=== PATIENT | female | born 1945 | race Caucasian/White ===

== ENCOUNTER 2019-08-03 07:22 | Day surgery (SDC) | payer MEDICARE ==
[2019-08-01 11:03] LABS: CREATININE 0.7 mg/dL (0.5-1.5); POTASSIUM 3.9 mmol/L (3.5-5.1)
[2019-08-01 11:07] LABS: INR 1.02 (0.85-1.15); PARTIAL THROMBOPLASTIN TIME 25.1 SEC (26.3-35.5); PROTHROMBIN TIME 10.7 SEC (9.6-11.6)
[2019-08-01 11:28] LABS: BASOPHILS % (AUTO) 0.6 % (0.0-5.0); EOSINOPHILS % (AUTO) 2.1 % (0.0-8.0); HEMATOCRIT 42.1 % (36-48); LYMPHOCYTES % (AUTO) 22.9 % (21.0-51.0); MEAN CORPUSCULAR HEMOGLOBIN 33.3 pg (27.0-33.0); MEAN CORPUSCULAR HGB CONC 33.3 g/dL (32.0-36.0); MONOCYTES % (AUTO) 9.3 % (3.0-13.0); PLATELET COUNT (AUTO) 206 K/uL (130-400); RED BLOOD CELL COUNT(AUTO) 4.21 MIL/uL (4.00-5.50); RED CELL DISTRIBUTION WIDTH 12.2 % (11.0-15.5); WHITE BLOOD COUNT (AUTO) 6.7 K/uL (4.8-10.8)
[2019-08-01 12:12] VITALS: BP 137/63
[~2019-08-03] VITALS: Ht 160 cm; Wt 61.7 kg
[2019-08-03] VITALS (8 sets, daily range): BP systolic 92–149; BP diastolic 52–89
[~2019-08-03 07:22] MED LIST: ASPI-1181 PO; ATOR20TA65 PO; BILBERRY PO; CARV25TA PO; CHIA SEED PO; ESOM40CA PO; LOSA1TAB54 PO; METF-526 PO; MILK THISTLE PO; SODIUM CHLORIDE 0.9% 1000ML 1,000 ML IV SCH; THIO200T2 PO; UBID100C10 PO; [UNRECOGNIZED DRUG - OTHER]
[2019-08-03] MEDS ORDERED: HEPARIN SODIUM 1000UNIT/ML 10ML VIAL ONE (11:17)
[2019-08-03] MEDS ORDERED: ISOPROTERENOL HCL 0.2 MG/ML AMP/VIAL/BAG ONE ×2 (11:17→13:20)
[2019-08-03] MEDS ORDERED: MEPERIDINE-PF 25 MG/ML SYG ONE (11:18)
[2019-08-03] MEDS ORDERED: LIDOCAINE HCL 2% 20ML ONE ×2 (11:18→12:12)
[2019-08-03] MEDS ORDERED: MIDAZOLAM HCL 1 MG/ML 2ML VIAL ONE ×3 (11:18→12:26)
[2019-08-03] MEDS ORDERED: FENTANYL CITRATE PF 50 MCG/1 ML 2ML VIAL ONE ×2 (11:40→12:26)
--- NOTE | 2019-08-03 15:30 | NUR ---
REPORT REPORT GIVEN TO CRISELDA VILLAVICENCIO RN. PT SUPINE ON BED, AWAKE AND ALERT. CATH SITE BOTH GROIN REMAINS SOFT, DRESSINGS DRY AND INTACT, NO OOZING NO HEMATOMA NOTED. ASSISTING IN FEEDING PT. TOLERATING DIET WELL.
== END 2019-08-03 18:18 | disposition home or self-care (01) ==
LOC: DAH 07:22
PROVIDERS: ATTEND Internal Medicine Cardiovascular Disease
DX: I47.1 Supraventricular tachycardia (principal); I10 Essential (primary) hypertension; E78.5 Hyperlipidemia, unspecified; E11.9 Type 2 diabetes mellitus without complications; F17.210 Nicotine dependence, cigarettes, uncomplicated; Z79.82 Long term (current) use of aspirin; Z79.899 Other long term (current) drug therapy; Z79.84 Long term (current) use of oral hypoglycemic drugs; Z79.01 Long term (current) use of anticoagulants; Z88.1 Allergy status to other antibiotic agents; Z88.8 Allergy status to other drugs, medicaments and biological substances; Z72.89 Other problems related to lifestyle; Z82.49 Family history of ischemic heart disease and other diseases of the circulatory system; Z83.3 Family history of diabetes mellitus
CPT/HCPCS: 36415; 80048; 82948 ×2; 85025; 85610; 85730; 93613; 93620; 93621; 93623; A4215; A4216; A4221; A4222; A4223 ×3; A4606; A4649 ×2; A4663; C1730 ×4; C1894 ×5; J1644; J2250 ×3; J3010 ×2; J3490 ×4; 99156; 99157; J2175

== ENCOUNTER → 2022-11-01 | Outpatient (CLI) | payer MEDICARE ==
[~2022-11-01] MED LIST changes: -ASPI-1181 PO; +ASPI-1443 PO; -SODIUM CHLORIDE 0.9% 1000ML 1,000 ML IV SCH
== END | disposition home or self-care (01) ==
LOC: RAH 08:55
PROVIDERS: ATTEND Family Medicine
DX: M51.26 Other intervertebral disc displacement, lumbar region (principal); R51.9 Headache, unspecified; C20 Malignant neoplasm of rectum
CPT/HCPCS: 70470; 72148

== ENCOUNTER → 2023-05-02 | Outpatient (CLI) | payer MEDICARE | END | disposition home or self-care (01) | LOC: SHCH 10:42 | PROVIDERS: ATTEND Internal Medicine Cardiovascular Disease | DX: I11.9 Hypertensive heart disease without heart failure (principal); I47.10 Supraventricular tachycardia, unspecified; E78.5 Hyperlipidemia, unspecified; E11.9 Type 2 diabetes mellitus without complications | CPT/HCPCS: 93306 ==

== ENCOUNTER → 2023-05-24 | Outpatient (CLI) | payer MEDICARE | END | disposition home or self-care (01) | LOC: RAH 14:14 | PROVIDERS: ATTEND Family Medicine | DX: R06.2 Wheezing (principal); I70.0 Atherosclerosis of aorta; M47.815 Spondylosis without myelopathy or radiculopathy, thoracolumbar region | CPT/HCPCS: 71046 ==

== ENCOUNTER → 2023-06-29 | Outpatient (CLI) | payer MEDICARE | END | disposition home or self-care (01) | LOC: RAH 11:40 | PROVIDERS: ATTEND Family Medicine | DX: M47.812 Spondylosis without myelopathy or radiculopathy, cervical region (principal) | CPT/HCPCS: 72050 ==

== ENCOUNTER → 2023-08-08 | Outpatient (CLI) | payer MEDICARE | END | disposition home or self-care (01) | LOC: SHCH 09:21 | PROVIDERS: ATTEND Student in an Organized Health Care Education/Training Program | DX: I70.293 Other atherosclerosis of native arteries of extremities, bilateral legs (principal); R07.9 Chest pain, unspecified; I10 Essential (primary) hypertension; I47.10 Supraventricular tachycardia, unspecified; R93.1 Abnormal findings on diagnostic imaging of heart and coronary circulation; E11.51 Type 2 diabetes mellitus with diabetic peripheral angiopathy without gangrene; Z79.4 Long term (current) use of insulin; Z79.899 Other long term (current) drug therapy | CPT/HCPCS: 93925 ==

== ENCOUNTER → 2023-08-12 | Outpatient (CLI) | payer MEDICARE ==
[~2023-08-12] MED LIST changes: +IOHEXOL 350 MG/ML 100ML INFUS..BTL IV ONE; +METOPROLOL TARTRATE 1 MG/ML 5ML VIAL IV ONE
== END | disposition home or self-care (01) ==
LOC: RAH 07:47
PROVIDERS: ATTEND Student in an Organized Health Care Education/Training Program
DX: R07.9 Chest pain, unspecified (principal)
CPT/HCPCS: 75574; J3490; Q9967

== ENCOUNTER → 2023-08-17 | Outpatient (CLI) | payer MEDICARE ==
[~2023-08-17] MED LIST changes: -IOHEXOL 350 MG/ML 100ML INFUS..BTL IV ONE; -METOPROLOL TARTRATE 1 MG/ML 5ML VIAL IV ONE
== END | disposition home or self-care (01) ==
LOC: RAH 14:43
PROVIDERS: ATTEND Physical Medicine & Rehabilitation
DX: M47.22 Other spondylosis with radiculopathy, cervical region (principal); M48.02 Spinal stenosis, cervical region
CPT/HCPCS: 72141

== ENCOUNTER → 2024-11-02 | Outpatient (CLI) | payer MEDICARE ==
--- NOTE | 2024-11-02 15:41 | HMCIMG ---
US SOFT TISSUE NECK REASON: NONTOXIC SINGLE THYROID NODULE AND LYMPHADENOPATHY. COMPARISON: None TECHNIQUE: Soft tissue neck ultrasound study was performed. FINDINGS: Dense area seen in the left neck. However, no sonographic evidence of cystic or hypoechoic mass or lymph nodes seen in the region of interest. IMPRESSION: No focal mass lesion is seen.
--- NOTE | 2024-11-02 15:43 | HMCIMG ---
US THYROID/NECK HISTORY: Nontoxic single thyroid nodule COMPARISON: None TECHNIQUE: Thyroid ultrasound study was performed. FINDINGS: Right thyroid lobe measures 5.7 x 1.4 x 1.5 cm. Left thyroid lobe measures 5 x 1 x 1 cm. There is right upper pole hypoechoic nodule measuring 4 x 2 x 2 mm. There is a left lower pole nodule measuring 3.8 x 2.5 x 4.4 without flow. IMPRESSION: 1. Bilateral subcentimeter thyroid nodules related to goiter.
== END | disposition home or self-care (01) ==
LOC: RAH 13:40
PROVIDERS: ATTEND Family Medicine
DX: E04.2 Nontoxic multinodular goiter (principal)
CPT/HCPCS: 76536

== ENCOUNTER → 2024-11-16 | Outpatient (CLI) | payer MEDICARE ==
--- NOTE | 2024-11-16 15:01 | HMCIMG ---
Lumbar spine 2 views Comparison Study: none History: LOW BACK PAIN Findings: Exam of the lumbosacral spine demonstrates no evidence of fracture or subluxation. There are moderate spondylitic changes. The facet joints show moderate degenerative changes. The alignment of the spine is normal. The disc spaces are intact. Bone mineralization is normal. Lateral flexion and extension demonstrate no abnormal motion. Impression: Spondylitic changes and degenerative changes of the apophyseal joints as noted.
== END | disposition home or self-care (01) ==
LOC: RAH 14:04
PROVIDERS: ATTEND Family Medicine
DX: M47.817 Spondylosis without myelopathy or radiculopathy, lumbosacral region (principal); M54.59 Other low back pain
CPT/HCPCS: 72114